=== PATIENT | female | born 1980 | race Caucasian/White ===

== ENCOUNTER → 2016-06-28 | Outpatient (CLI) | payer BC, SELFPAY ==
[~2016-06-28] MED LIST: DIAMOX DPS250 MG PO; IMITREX DPS100 MG PO; KEPPRA DPS250 MG PO; LAMICTAL DPS100 MG PO; MOTRIN-DPS400 MG PO; PERCOCET 5 DPS1 TAB PO; SYNTHROID DPS0.1 MG PO; TREXIMET 85-501 EACH PO; TYLENOL DPS325 MG PO; ULTRAM DPS50 MG PO
== END | disposition home or self-care (01) ==
LOC: RAD.S 11:00
DX: E04.9 Nontoxic goiter, unspecified (principal); E07.89 Other specified disorders of thyroid

== ENCOUNTER 2016-07-27 05:44 | Observation (INO) | payer BC ==
[~2016-07-27] VITALS: Ht 157.5 cm; Wt 66.7 kg
[2016-07-29] MEDS ORDERED: DIAMOX DPS250 MG PO (18:15)
[2016-07-29] MEDS ORDERED: ULTRAM DPS50 MG PO (18:16)
[2016-07-29] MEDS ORDERED: TYLENOL DPS325 MG PO (18:16)
[2016-07-29] MEDS ORDERED: TREXIMET 85-501 EACH PO (18:16)
[2016-07-29] MEDS ORDERED: KEPPRA DPS250 MG PO (18:16)
[2016-07-29] MEDS ORDERED: IMITREX DPS100 MG PO (18:16)
[2016-07-29] MEDS ORDERED: LAMICTAL DPS100 MG PO (18:16)
[2016-07-29] MEDS ORDERED: MOTRIN-DPS400 MG PO (18:17)
--- NOTE | 2016-08-04 06:36 | OR ---
ADMIT: 07/27/2016 RM/LOC: 625 [facility] MR#: [id number] [address] [address] RASHAD MCCARTHY [address] [place] [address] Operative/Delivery Room Report SEX: F AGE: 36 : 1980 SURGERY DATE: 07/27/2016 SURGEON: Dirk Villafana MD PREOPERATIVE DIAGNOSIS: Right thyroid mass. POSTOPERATIVE DIAGNOSIS: Follicular nodule, right thyroid lobe. OPERATION: Right thyroid lobectomy. ANESTHESIA: General oral endotracheal. ESTIMATED BLOOD LOSS: 20 mL. COMPLICATIONS: None. COMMENT: Frozen section obtained, consistent with benign-appearing follicular nodule. DESCRIPTION OF PROCEDURE: With the patient in supine position, general endotracheal anesthesia, her eyes were taped. The neck was extended slightly. Anterior neck was prepped with ChloraPrep, allowed 3 minutes to dry. The patient was draped sterilely. An incision was then made following natural skin crease low in the neck through skin, subcutaneous tissue, and platysma muscle with skin flaps elevated superiorly and subplatysmally. The strap muscles were in the midline exposing the thyroid isthmus. The right thyroid lobe was exposed by retraction of the strap muscles laterally and blunt dissection. Small vessels were treated by clamping and coagulation. The lobe was grasped with tenaculum, retracted medially and dissection continued directly on the thyroid capsule. A large nodule approximately 2 cm was present in the mid to superior aspect of the right lobe, confined to the lobe. There is no adenopathy identifiable during the dissection. Tissue consistent with both the superior and inferior parathyroid glands were identified and preserved through the dissection. Recurrent laryngeal nerve was identified, its function confirmed intact by NIM-2 stimulation. The gland was pedicled at Preston's ligament which was transected and the gland pedicled at the isthmus which was ADMIT: 07/27/2016 RM/LOC: 625 [facility] MR#: [id number] [address] [address] RASHAD MCCARTHY [address] [place] [address] Operative/Delivery Room Report SEX: F AGE: 36 : 1980 with electrocautery and the right lobe was sent for frozen section analysis. This revealed a follicular lesion consistent with benign follicular nodule. The left lobe was without identifiable abnormalities and was left intact. The wound was irrigated with saline. Total blood loss 20 mL. Good hemostasis at completion. A Danilo-Groves drain was placed, brought out the left side of strap muscles and incision, and wound was closed in layers with 3- 0 chromic catgut to the midline strap muscles and inverted simple stitches to the platysmal layer; running horizontal mattress suture, reapproximated the skin and the drain was sutured to the skin with silk. A thyroid dressing applied. She tolerated this very well. She emerged from general anesthesia in the operating room, was extubated in the operating room, and transferred to the recovery room in good condition. Dirk Villafana MD/ sheron JOB #: [id number] CC: Dirk Villafana MD, Attending Physician Rebecca Kilgore, Family Physician
[2016-08-08] MEDS ORDERED: LAMICTAL DPS100 MG PO (12:54)
[2016-08-08] MEDS ORDERED: DIAMOX DPS250 MG PO (12:54)
[2016-08-08] MEDS ORDERED: PERCOCET 5 DPS1 TAB PO (12:55)
[2016-08-08] MEDS ORDERED: KEPPRA DPS250 MG PO (12:55)
[2016-08-08] MEDS ORDERED: IMITREX DPS100 MG PO (12:55)
[2016-08-08] MEDS ORDERED: SYNTHROID DPS0.1 MG PO (12:56)
--- NOTE | 2016-08-18 08:04 | HP ---
ADMIT: 07/27/2016 RM/LOC: W.03 [facility] MR#: [id number] [address] [place] [id number] RASHAD MCCARTHY [address] [place] [address] Pre-OP History and Physical SEX: F AGE: 36 : 1980 DATE OF SERVICE: HISTORY OF PRESENT ILLNESS: Rashad is 36-year-old. She is admitted for right thyroid lobectomy with frozen section and total thyroidectomy if malignancy is confirmed. She has developed a thyroid nodule that is solid 1.9 cm in diameter. Tissue diagnosis has been recommended. We discussed needle biopsy versus excisional biopsy and due to complications arising from needle treatment (seizures), she has elected to proceed with excisional biopsy under general anesthesia. We discussed the rationale, the risks, and the postop course of which she is in good understanding and acceptance of, and she is admitted for general anesthesia. A recent thyroid function tests show that she is euthyroid. She presently does not take thyroid medicine. MEDICATIONS: Prior: 1. Diamox. 2. Acetazolamide. 3. Lamictal. 4. Sumatriptan. ALLERGIES: SULFA AND MORPHINE. PAST MEDICAL HISTORY: section and kidney stone removal. REVIEW OF SYSTEMS: No lower respiratory, cardiovascular, GI, , or hematologic disorders. NEUROLOGIC: History of seizures. SOCIAL HISTORY: Drinks caffeine daily. Does not use alcohol nor does she use tobacco. FAMILY HISTORY: No anesthetic complications. No coagulopathies. PHYSICAL EXAMINATION: GENERAL: A 36-year-old, no acute distress. HEENT: Pupils equal. Conjunctivae clear. No proptosis. Extraocular ADMIT: 07/27/2016 RM/LOC: W.03 [facility] MR#: [id number] [address] [place] [address], [place] [address] RASHAD MCCARTHY [address] [place] [address] Pre-OP History and Physical SEX: F AGE: 36 : 1980 movements intact. Ear canals, TMs, and middle ears clear. Nose, airway patent. No mucus or purulence. Mouth and pharynx, good symmetry. Larynx, good symmetrical structure and function. NECK: Palpable right thyroid nodule approximately 2 cm diameter. Nontender. Firm. Nonmobile. No cervical adenopathy or other neck masses palpable. LUNGS: Clear. No wheeze. HEART: Rhythm regular. EXTREMITIES: Normal. IMPRESSION: Right thyroid nodule. PLAN: Excisional biopsy by right thyroid lobectomy. Frozen section, we will perform total thyroidectomy if malignancy is confirmed. Dirk Villafana MD/ sheron JOB #: [id number] CC: Dirk Villafana MD, Attending Physician
== END 2016-07-28 15:20 | disposition home or self-care (01) ==
LOC: WOR 05:44 → 6PED 09:31
PROVIDERS: ADMIT Otolaryngology
PROC: 0GTH0ZZ Resection of Right Thyroid Gland Lobe, Open Approach (ICD-10-PCS; principal; 2016-07-27)
DX: C73 Malignant neoplasm of thyroid gland (principal); Z88.2 Allergy status to sulfonamides; Z88.5 Allergy status to narcotic agent; Z98.51 Tubal ligation status; Z98.890 Other specified postprocedural states

== ENCOUNTER 2016-08-06 05:45 | Observation (INO) | payer BC ==
[~2016-08-06] VITALS: Ht 157.5 cm; Wt 65.5 kg
--- NOTE | ~2016-08-06 | OR ---
ADMIT: 08/06/2016 RM/LOC: 618 [facility] MR#: [id number] [address] [address] RASHAD MCCARTHY [address] [place] [address] Operative/Delivery Room Report SEX: F AGE: 36 : 1980 SURGERY DATE: 08/06/2016 SURGEON: Dirk Villafana MD HIDE AND SKIN CLASSER: Bruno Durham MD PREOPERATIVE DIAGNOSIS: Papillary thyroid carcinoma, right thyroid lobe. POSTOPERATIVE DIAGNOSIS: Papillary thyroid carcinoma, right thyroid lobe. OPERATION: Left thyroid lobectomy (completion total thyroidectomy). ANESTHESIA: General oral endotracheal. BLOOD LOSS: 30 mL. COMPLICATIONS: None. DRAINS: Danilo-Groves 7 mm. DESCRIPTION OF PROCEDURE: With the patient in the supine position under general oral endotracheal anesthesia, neck was extended slightly. Anterior neck was prepped with ChloraPrep, allowed 3 minutes to dry. The patient was draped sterilely. An incision was made through the previous incision which with Metzenbaum scissors. Retained catgut sutures were removed through the exposure process and skin flaps were again elevated and strap muscles were in the midline. The left thyroid lobe was identified, strap muscles retracted laterally. The lobe was grasped with tenaculum and retracted medially. Dissection was then continued directly on the thyroid capsule. Tissue consistent with superior and inferior parathyroid glands were identified and preserved during the procedure and recurrent laryngeal nerve was identified, its identity and function confirmed intact by NIM-2 stimulation. The gland was pedicled at Preston's ligament, which was transected with Metzenbaum scissors and the left lobe was removed from the field. The wound was irrigated with saline. Hemostasis was assured by clamping and coagulation. Exploration identified a small lymph node in the left ADMIT: 08/06/2016 RM/LOC: 8 [facility] MR#: [id number] [address] [address] RASHAD MCCARTHY [address] [place] [address] Operative/Delivery Room Report SEX: F AGE: 36 : 1980 paratracheal region medially inferior to the location of the left inferior thyroid lobe. This was excised and sent also for histologic examination, did not have suspicious features grossly. A 7 mm Danilo-Groves drain was placed, brought out at the right side of strap muscles and incision. Wound was again closed in layers with 3-0 chromic catgut to the midline strap muscles, inverted simple stitches to the platysmal layer, and a running horizontal mattress suture to the skin. The drain was sutured to the skin with silk, and the operation was completed. The patient tolerated the procedure well. She emerged from general anesthesia in the operating room, extubated in the operating room and transferred to the recovery room in good condition. She experienced no stridor nor airway distress. PTH level would be obtained in the recovery room. Dirk Villafana MD/ sheron JOB #: [id number] CC: Dirk Villafana MD, Attending Physician Rebecca Kilgore, Family Physician
[~2016-08-06 05:45] MED LIST changes: -PERCOCET 5 DPS1 TAB PO; -SYNTHROID DPS0.1 MG PO
[2016-08-08] MEDS ORDERED: DIAMOX DPS250 MG PO (12:54)
[2016-08-08] MEDS ORDERED: LAMICTAL DPS100 MG PO (12:54)
[2016-08-08] MEDS ORDERED: IMITREX DPS100 MG PO (12:55)
[2016-08-08] MEDS ORDERED: KEPPRA DPS250 MG PO (12:55)
[2016-08-08] MEDS ORDERED: PERCOCET 5 DPS1 TAB PO (12:55)
[2016-08-08] MEDS ORDERED: SYNTHROID DPS0.1 MG PO (12:56)
--- NOTE | 2016-08-18 08:04 | HP ---
ADMIT: 08/06/2016 RM/LOC: [facility] MR#: [id number] [address] [address] RASHAD MCCARTHY [address] [place] [address] Pre-OP History and Physical SEX: F AGE: 36 : 1980 DATE OF SERVICE: HISTORY OF PRESENT ILLNESS: Rashad is 36 years old. She underwent right thyroid lobectomy on July 27 for a nodule that proved malignant, consistent with papillary carcinoma on permanent anatomic pathology. At time of surgery, frozen section was obtained and definitive diagnosis of malignancy was unable to be made, but with the final report confirming the lesion to be malignant, total thyroidectomy has been recommended. She is readmitted at this time for completion total thyroidectomy (left thyroid lobectomy). She is in good understanding of the rationale and the risks. We discussed this again including risk to the recurrent laryngeal nerves and again discussed risk of postop hypocalcemia. She is in acceptance of these. She is admitted for general anesthesia. MEDICATIONS: Medications prior: 1. Diamox. 2. Acetazolamide. 3. Lamictal. 4. Sumatriptan. ALLERGIES: SULFA, MORPHINE. PAST MEDICAL HISTORY: sections. Kidney stone removal. 07/27/2016, right thyroid lobectomy. REVIEW OF SYSTEMS: Negative for lower respiratory, cardiovascular, gastrointestinal, genitourinary disorders. She does have past history of seizures and history of migraines. SOCIAL HISTORY: She drinks caffeine. She does not drink alcohol, nor does she use tobacco, and is not exposed to secondhand smoke. FAMILY HISTORY: No anesthetic complications. No coagulopathies. PHYSICAL EXAMINATION: GENERAL: A 36-year-old, in no acute distress. ADMIT: 08/06/2016 RM/LOC: [facility] MR#: [id number] [address] [address] RASHAD MCCARTHY [address] [place] [address] Pre-OP History and Physical SEX: F AGE: 36 : 1980 HEENT: Cooperative. Pupils are equal. Ear canals, TMs, and middle ears normal. Nose, mouth, pharynx clear. Larynx, good symmetry, structure, and function. NECK: Incision from previous thyroidectomy healing without signs of inflammation or infection. There is very mild induration. LUNGS: Clear. HEART: Rhythm regular. EXTREMITIES: Normal. IMPRESSION: Papillary thyroid carcinoma, right thyroid lobe. PLAN: Completion thyroidectomy (left thyroid lobectomy). Dirk Villafana MD/ sheron JOB #: [id number] CC: Dirk Villafana MD, Attending Physician UNKNOWN, Family Physician
== END 2016-08-07 15:45 | disposition home or self-care (01) ==
LOC: WOR 05:45 → 6PED 08:42
PROVIDERS: ADMIT Otolaryngology
PROC: 0GTG0ZZ Resection of Left Thyroid Gland Lobe, Open Approach (ICD-10-PCS; principal; 2016-08-06)
DX: E06.5 Other chronic thyroiditis (principal); I88.8 Other nonspecific lymphadenitis; Z87.442 Personal history of urinary calculi; Z79.899 Other long term (current) drug therapy; Z88.2 Allergy status to sulfonamides; Z98.890 Other specified postprocedural states